=== PATIENT | male | born 1950 | race Caucasian/White ===

== ENCOUNTER 2018-09-13 09:09 | Observation (INO) ==
--- NOTE | 2018-09-13 09:28 | Emergency Department Note ---
Disposition Clinical Impression: Weakness, Proctocolitis, TACOS (acute kidney injury) Diarrhea Qualifiers: Diarrhea type: unspecified type Qualified Code(s): R19.7 - Diarrhea, unspecified Pancreatitis Qualifiers: Chronicity: acute Pancreatitis type: unspecified pancreatitis type Acute pancreatitis complication: unspecified Qualified Code(s): K85.90 - Acute pancreatitis without necrosis or infection, unspecified Ulcerative colitis Qualifiers: Ulcerative colitis location: other ulcerative colitis Digestive disease complication type: without complication Qualified Code(s): K51.80 - Other ulcerative colitis without complications Disposition: Admitted As Inpatient Condition: Undetermined Referrals: Oseas Painter DO [Primary Care Provider] - Forms: ED Satisfaction Letter Time of Disposition: 12:00 General Adult HPI - General Stated complaint: abnormal labs Time Seen by Provider: 09/13/18 09:15 Source: patient, family Mode of arrival: private vehicle Limitations: no limitations Nursing Notes Reviewed: Yes Vital Signs Reviewed: Yes - History of Present Illness HPI Narrative: Patient is a 68-year-old male with a past medical history including COPD, chronic pancreatitis, coronary artery disease and AR with stent placements, hypertension, hyperlipidemia, bladder cancer s/p surgery in 2017, presenting with a chief complaint of abnormal lab work. He states he was diagnosed with ulcerative colitis 2 years ago. In the last 2-3 months he has diarrhea, occasional bright red blood. He has 40 pound weight loss. Complains of generalized weakness. He has some nausea and decreased appetite. Denies abdominal pain, vomiting. Denies dysuria, hematuria. Patient saw KULWINDER Ware last week, started on budesinide. He had lab work done last week on 09/08. He was called stating to come to the ED for abnormal lab work. The patient denies any fevers or chills, chest pain, shortness of breath, worsening cough, one-sided extremity weakness or numbness. The patient does note he was treated with a 10 day course of flagyl for colitis. Pain Scale: 6 - Related Data Home Medications Medication Instructions Recorded Confirmed Isosorbide DInitrate [Isosorbide 30 mg PO DAILY 09/23/16 09/23/16 Dinitrate] Lisinopril/Hydrochlorothiazide 1 each PO DAILY 09/23/16 09/23/16 [Zestoretic 20-12.5 mg Tablet] Lovastatin 40 mg PO DAILY 09/23/16 09/23/16 Metoprolol [Lopressor] 50 mg PO BID 09/23/16 09/23/16 Ranitidine HCl [Zantac] 300 mg PO DAILY 09/23/16 09/23/16 Previous Rx's Medication Instructions Recorded HYDROcodone/Acet 5/325 mg [[place] 1 tab PO Q4H PRN #15 tab 09/23/16 5-325 mg] Allergies Allergy/AdvReac Type Severity Reaction Status Date / Time No Known Allergies Allergy Verified 09/23/16 09:16 All systems ED: reviewed and negative except as stated. Review of Systems: As Per HPI Constitutional: Reports: weakness, weight change. Denies: fever, chills Cardiovascular: Denies: chest pain, palpitations Respiratory: Denies: cough, dyspnea Gastrointestinal: Reports: nausea, diarrhea, hematochezia. Denies: abdominal pain, vomiting, hematemesis, melena Genitourinary: Denies: dysuria, hematuria Musculoskeletal: Denies: back pain Neurological: Denies: headache, weakness, numbness, paresthesias, confusion, abnormal gait Past Medical History - Past Medical History Attestation: Yes The following information was validated with the patient. Source: patient Medical history: Reports: cancer, COPD, coronary artery disease, hyperlipidemia, hypertension, myocardial infarction Surgical history: Reports: angioplasty/stent, cancer surgery, knee replacement, other Psychiatric history: Reports: no psych history - Social History Smoking Status: Former smoker Smokeless Tobacco Status: No Alcohol use: Reports: occasionally Drug use: Reports: none Physical Exam - General Limitations: no limitations General appearance: alert, in no apparent distress - Head Head exam: atraumatic, normocephalic, normal inspection - Eye Eye exam: Present: normal appearance, PERRL, EOMI - ENT ENT exam: normal exam, normal oropharynx, mucous membranes moist - Neck Neck exam: Present: normal inspection, full ROM, trachea midline - Chest Chest inspection: Present: normal inspection, symmetric chest wall rise - Respiratory Respiratory exam: Present: normal lung sounds bilaterally. Absent: respiratory distress, wheezes - Cardiovascular Cardiovascular exam: Present: regular rate, normal rhythm, normal heart sounds - Abdominal Exam Abdominal exam: Present: soft, Non-Tender. Absent: distention, guarding, rebound - Extremities Exam Extremities exam: Present: full ROM, normal capillary refill. Absent: pedal edema, calf tenderness - Neurological Exam Neurological exam: Present: alert, oriented X3 - Psychiatric Psychiatric exam: Present: normal affect, normal mood - Skin Skin exam: Present: warm, dry. Absent: diaphoresis, pallor Course Vital Signs Temperature 98.1 F 09/13/18 09:10 Pulse Rate 81 09/13/18 09:10 Respiratory Rate 14 09/13/18 09:10 Blood Pressure 137/63 09/13/18 09:10 O2 Sat by Pulse Oximetry 95 09/13/18 09:10 Temperature 98.1 F 09/13/18 09:24 Pulse Rate 83 09/13/18 11:44 Respiratory Rate 16 09/13/18 11:44 Blood Pressure 143/74 09/13/18 11:44 O2 Sat by Pulse Oximetry 97 09/13/18 11:44 Oxygen Delivery Oxygen Delivery Room Air Medical Decision Making - MDM Narrative Medical decision making narrative: Patient is presenting with diarrhea for many weeks. He was diagnosed with ulcerative colitis 2 years ago and follows up with GI. He saw Dr. Valdez last week and started on a new medication. He also had lab work done. He is called with abnormalities in presenting here. He also complains of generalized weakness and significant weight loss in the past several weeks. From prior lab work, patient does have a GI with creatinine 2.331 prior was normal. He also had a elevated white blood count of 19. We will obtain repeat lab work and check CBC, BMP, hepatic panel, lipase , urinalysis, we will also obtain C. difficile toxin as he has chronic diarrhea. Patient also states he completed a 10 day course of Flagyl recently for colitis. We will obtain CT abdomen and pelvis without contrast as he has a low GFR that it appears to be new. We will also obtain chest x-ray. EKG shows no ischemic changes. 10:45 Labs reviewed. White blood count is decreased from 19,000-13,000. His kidney function also appears to be improved from the past 5 days from 2.88 to1.5. Lipase is elevated. Patient may have acute on chronic pancreatitis. We will also await the CT imaging. He is receiving a liter of IV fluids. 11:20 Patient has proctocolitis and findings of ulcerative colitis on CT. Acute on chronic pancreatitis. Will call KULWINDER Ware, who is patient's GI doctor and on consult. 11:55 Discussed with Luis Ahn, GI who states to give Cipro and Flagyl. Consult as needed. Hospitalist paged for admission. 12:[address] Razo, hospitalist who accepts admission - Medical Records Medical records reviewed: Yes I reviewed the patient's medical records. - Lab Data Lab results reviewed: Yes I reviewed the patient's lab results. Result diagrams: 09/13/18 09:49 09/13/18 09:49 Lab Results 09/13/18 09/13/18 09/13/18 Range/Units 09:49 09:49 10:50 WBC 13.9 H (4.3-11.1) K/mcL RBC 3.80 L (4.19-5.50) M/mcL Hgb 10.1 L (12.9-16.9) g/dL Hct 32.6 L (37.5-50.1) % MCV 85.8 (83.0-100.0) fL MCH 26.6 L (28.0-33.3) pg MCHC 31.0 L (31.6-35.5) g/dL RDW 15.6 H (11.5-14.5) % Plt Count 363 (140-400) K/mcL MPV 10.0 (9.4-12.4) fL Immature Gran % 0.6 (0-4) % Seg Neutrophils % 76.2 % Lymphocytes % 12.1 % Monocytes % 9.3 % Eosinophils % 1.4 % Basophils % 0.4 % Neutrophils # 10.6 H (1.6-8.9) K/mcL Lymphocytes # 1.7 (0.6-4.6) K/mcL Monocytes # 1.3 (0.0-1.3) K/mcL Eosinophils # 0.2 (0.0-0.6) K/mcL Basophils # 0.1 (0.0-0.2) K/mcL Sodium 140 (136-145) mEq/L Potassium 3.4 L (3.5-5.1) mEq/L Chloride 107 (98-107) mEq/L Carbon Dioxide 19 L (23-29) mEq/L BUN 30 H (8-23) mg/dL Creatinine 1.52 H (0.70-1.30) mg/dL Est GFR ( Amer) 55 L (> 60) Est GFR (Non-Af Amer) 46 L (> 60) BUN/Creatinine Ratio 20 (6-26) Glucose 109 H (70-105) mg/dL Calculated Osmolality 297 (280-300) Calcium 8.8 (8.6-10.3) mg/dL Total Bilirubin 0.3 (0.3-1.0) mg/dL Direct Bilirubin 0.1 (0.0-0.2) mg/dL Indirect Bilirubin 0.2 (0.0-1.2) mg/dL AST 22 (13-39) Units/L ALT 15 (7-52) Units/L Alkaline Phosphatase 44 (34-104) Units/L Serum Total Protein 6.9 (6.4-8.9) g/dL Albumin 3.5 (3.5-5.7) g/dL Globulin 3.4 (2.4-3.5) g/dL Albumin/Globulin Ratio 1.0 L (1.1-2.2) Lipase 236 H (11-82) Units/L Urine Color Yellow (Yellow) Urine Clarity Clear (Clear) Urine pH 6.0 (5.0-8.0) pH Units Ur Specific [place] 1.016 (1.010-1.025) Urine Protein 30 H (Neg-Trace) mg/dL Urine Glucose (UA) Normal (Normal) mg/dL Urine Ketones 15 H (Negative) mg/dL Urine Blood Negative (Negative) Urine Nitrite Negative (Negative) Urine Bilirubin Small H (Negative) Urine Urobilinogen Normal (Normal) mg/dL Ur Leukocyte Esterase Negative (Negative) Urine Microscopic RBC 0-3 (0-3) per hpf Urine Microscopic WBC 0-3 (0-3) per hpf Ur Squamous Epith Cells Many H (None-Few) per lpf Urine Bacteria None Seen (None-Few) per hpf Hyaline Casts None Seen (None-Few) per lpf Ur Culture Indicated? NO (NO) - Radiology Data Radiology results reviewed: Yes I reviewed the patient's radiology results. Abdomen/Pelvis CT 09/13/18 10:06 IMPRESSION: 1. Loss of haustral folds within the descending colon and sigmoid colon compatible with history of ulcerative colitis. There is colonic wall thickening in this region which may signify superimposed proctocolitis. 2. Normal appendix. No bowel obstruction. 3. Punctate calcifications throughout the pancreas compatible with sequela of chronic pancreatitis. D/ / 09/13/2018 10:55:54 Kitty Bauer MD / anuja Interpreting Provider: Kitty Bauer MD Chest X-Ray 09/13/18 10:14 IMPRESSION: 1. No acute radiographic abnormality in the chest. D/ / Samir Licona MD / Samir Licona MD Interpreting Provider: Samir Licona MD - EKG Data EKG #1 EKG attestation: Yes I reviewed and interpreted this EKG. EKG results narrative: EKG obtained at 1021 shows sinus rhythm with heart rate 71, HI interval 170, QRS duration 92, QTC 426, No ST elevation or depression. T wave inversion in lead 3. No changes compared to EKG from 09/19/2016.
[2018-09-13 10:03] LABS: Basophils # 0.1 K/mcL (0.0-0.2); Basophils % 0.4 %; Eosinophils # 0.2 K/mcL (0.0-0.6); Eosinophils % 1.4 %; Hematocrit 32.6 % (37.5-50.1); Hemoglobin 10.1 g/dL (12.9-16.9); Immature Granulocytes % 0.6 % (0-4); Lymphocytes # 1.7 K/mcL (0.6-4.6); Lymphocytes % 12.1 %; Mean Corpuscular Hemoglobin 26.6 pg (28.0-33.3); Mean Corpuscular Volume 85.8 fL (83.0-100.0); Monocytes # 1.3 K/mcL (0.0-1.3); Monocytes % 9.3 %; Neutrophils # 10.6 K/mcL (1.6-8.9); Platelet Count 363 K/mcL (140-400); Red Cell Distribution Width 15.6 % (11.5-14.5); Segmented Neutrophils % 76.2 %; White Blood Count 13.9 K/mcL (4.3-11.1)
[2018-09-13] MEDS ORDERED: 0.9 % Sodium Chloride 1,000 ML IVC ONE (10:07)
[2018-09-13 10:24] LABS: Calcium 8.8 mg/dL (8.6-10.3); Potassium 3.4 mEq/L (3.5-5.1)
--- NOTE | 2018-09-13 10:30 | Emergency Department Note ---
Disposition Clinical Impression: Weakness, Proctocolitis, TACOS (acute kidney injury) Diarrhea Qualifiers: Diarrhea type: unspecified type Qualified Code(s): R19.7 - Diarrhea, unspecified Pancreatitis Qualifiers: Chronicity: acute Pancreatitis type: unspecified pancreatitis type Acute pancreatitis complication: unspecified Qualified Code(s): K85.90 - Acute pancreatitis without necrosis or infection, unspecified Ulcerative colitis Qualifiers: Ulcerative colitis location: other ulcerative colitis Digestive disease complication type: without complication Qualified Code(s): K51.80 - Other ulcerative colitis without complications Disposition: Admitted As Inpatient Condition: Undetermined Time of Disposition: 16:24 General Adult HPI - General Chief complaint: ED Recheck/Abnormal Lab/Rx Stated complaint: abnormal labs Time Seen by Provider: 09/13/18 09:15 Source: patient, family Mode of arrival: private vehicle Limitations: no limitations Nursing Notes Reviewed: Yes Vital Signs Reviewed: Yes - History of Present Illness Pain Scale: 6 - Related Data Home Medications Medication Instructions Recorded Confirmed Isosorbide DInitrate [Isosorbide 30 mg PO DAILY 09/23/16 09/13/18 Dinitrate] Lovastatin 40 mg PO DAILY 09/23/16 09/13/18 Metoprolol [Lopressor] 50 mg PO BID 09/23/16 09/13/18 Budesonide [Entocort EC] 9 mg PO DAILY 09/13/18 09/13/18 Finasteride [Proscar] 5 mg PO DAILY 09/13/18 09/13/18 Lisinopril 30 mg PO DAILY 09/13/18 09/13/18 Ranitidine HCl [Acid Oxygen Therapist] 150 mg PO BID 09/13/18 09/13/18 Sulfasalazine [Azulfidine] 2,000 mg PO BID 09/13/18 09/13/18 Allergies Allergy/AdvReac Type Severity Reaction Status Date / Time No Known Allergies Allergy Verified 09/23/16 09:16 Constitutional: Reports: weakness, weight change. Denies: fever, chills Cardiovascular: Denies: chest pain, palpitations Respiratory: Denies: cough, dyspnea Gastrointestinal: Reports: nausea, diarrhea, hematochezia. Denies: abdominal pain, vomiting, hematemesis, melena Genitourinary: Denies: dysuria, hematuria Musculoskeletal: Denies: back pain Neurological: Denies: headache, weakness, numbness, paresthesias, confusion, a bnormal gait Past Medical History - Past Medical History Medical history: Reports: cancer, COPD, coronary artery disease, hyperlipidemia, hypertension, myocardial infarction Surgical history: Reports: angioplasty/stent, cancer surgery, knee replacement, other Psychiatric history: Reports: no psych history - Social History Smoking Status: Former smoker Smokeless Tobacco Status: No Alcohol use: Reports: occasionally Drug use: Reports: none Physical Exam - General Limitations: no limitations General appearance: alert, in no apparent distress Course Vital Signs Temperature 98.1 F 09/13/18 09:10 Pulse Rate 81 09/13/18 09:10 Respiratory Rate 14 09/13/18 09:10 Blood Pressure 137/63 09/13/18 09:10 O2 Sat by Pulse Oximetry 95 09/13/18 09:10 Temperature 98.1 F 09/13/18 09:24 Pulse Rate 88 09/13/18 14:12 Respiratory Rate 18 09/13/18 15:21 Blood Pressure 146/70 09/13/18 15:21 O2 Sat by Pulse Oximetry 98 09/13/18 14:12 Oxygen Delivery Oxygen Delivery Room Air Medical Decision Making - [facility] Narrative Medical decision making narrative: Abdomen/Pelvis CT 09/13/18 10:06 IMPRESSION: 1. Loss of haustral folds within the descending colon and sigmoid colon compatible with history of ulcerative colitis. There is colonic wall thickening in this region which may signify superimposed proctocolitis. 2. Normal appendix. No bowel obstruction. 3. Punctate calcifications throughout the pancreas compatible with sequela of chronic pancreatitis. D/ / 09/13/2018 10:55:54 Kitty Bauer MD / anuja Interpreting Provider: Kitty Bauer MD Chest X-Ray 09/13/18 10:14 IMPRESSION: 1. No acute radiographic abnormality in the chest. D/ / Samir Licona MD / Samir Licona MD Interpreting Provider: Samir Licona MD 1200 hrs.: Spoke with GI start on antibiotics and admission with hospitalist. - Lab Data Result diagrams: 09/13/18 09:49 07/15/19 09:49 Lab Results 09/13/18 09/13/18 09/13/18 Range/Units 09:49 09:49 10:50 WBC 13.9 H (4.3-11.1) K/mcL RBC 3.80 L (4.19-5.50) M/mcL Hgb 10.1 L (12.9-16.9) g/dL Hct 32.6 L (37.5-50.1) % MCV 85.8 (83.0-100.0) fL MCH 26.6 L (28.0-33.3) pg MCHC 31.0 L (31.6-35.5) g/dL RDW 15.6 H (11.5-14.5) % Plt Count 363 (140-400) K/mcL MPV 10.0 (9.4-12.4) fL Immature Gran % 0.6 (0-4) % Seg Neutrophils % 76.2 % Lymphocytes % 12.1 % Monocytes % 9.3 % Eosinophils % 1.4 % Basophils % 0.4 % Neutrophils # 10.6 H (1.6-8.9) K/mcL Lymphocytes # 1.7 (0.6-4.6) K/mcL Monocytes # 1.3 (0.0-1.3) K/mcL Eosinophils # 0.2 (0.0-0.6) K/mcL Basophils # 0.1 (0.0-0.2) K/mcL Sodium 140 (136-145) mEq/L Potassium 3.4 L (3.5-5.1) mEq/L Chloride 107 (98-107) mEq/L Carbon Dioxide 19 L (23-29) mEq/L BUN 30 H (8-23) mg/dL Creatinine 1.52 H (0.70-1.30) mg/dL Est GFR ( Amer) 55 L (> 60) Est GFR (Non-Af Amer) 46 L (> 60) BUN/Creatinine Ratio 20 (6-26) Glucose 109 H (70-105) mg/dL Calculated Osmolality 297 (280-300) Calcium 8.8 (8.6-10.3) mg/dL Total Bilirubin 0.3 (0.3-1.0) mg/dL Direct Bilirubin 0.1 (0.0-0.2) mg/dL Indirect Bilirubin 0.2 (0.0-1.2) mg/dL AST 22 (13-39) Units/L ALT 15 (7-52) Units/L Alkaline Phosphatase 44 (34-104) Units/L Serum Total Protein 6.9 (6.4-8.9) g/dL Albumin 3.5 (3.5-5.7) g/dL Globulin 3.4 (2.4-3.5) g/dL Albumin/Globulin Ratio 1.0 L (1.1-2.2) Lipase 236 H (11-82) Units/L Urine Color Yellow (Yellow) Urine Clarity Clear (Clear) Urine pH 6.0 (5.0-8.0) pH Units Ur Specific [place] 1.016 (1.010-1.025) Urine Protein 30 H (Neg-Trace) mg/dL Urine Glucose (UA) Normal (Normal) mg/dL Urine Ketones 15 H (Negative) mg/dL Urine Blood Negative (Negative) Urine Nitrite Negative (Negative) Urine Bilirubin Small H (Negative) Urine Urobilinogen Normal (Normal) mg/dL Ur Leukocyte Esterase Negative (Negative) Urine Microscopic RBC 0-3 (0-3) per hpf Urine Microscopic WBC 0-3 (0-3) per hpf Ur Squamous Epith Cells Many H (None-Few) per lpf Urine Bacteria None Seen (None-Few) per hpf Hyaline Casts None Seen (None-Few) per lpf Ur Culture Indicated? NO (NO) Attestation Statement - Attestation Attestation: This documentation is done with the assistance of Dragon dictation. Despite efforts made to ensure accuracy, there may be inaccuracies in [employer] food [employer] cooking or spelling and typographical errors. I examined this patient and my medical decision-making was reviewed with the Resident Physician. I agree with the documented findings, disposition and treatment plan as described except to the extent set forth below. Patient was seen and evaluated by Dr. Hurley and myself, I agree with his evaluation and management plan, I supervised the care of the patient throughout their stay. Patient has had diarrhea and that has been going on for a couple months. He said he had this a long time ago had colitis, was placed on Cipro and Flagyl he said this time is just on Flagyl. He said a more than 20 pound weight loss is felt weak. He is appears somewhat pale here. Denies abdominal pain this time. He denies any chest pain or fevers. We will go ahead and do a workup on him and reassess. Most likely he will need admission. He is in agreement with plan. I reviewed the residents documentation and agree with the residents assessment and plan of care. I have personally had face to face time with the patient. (Brief History, Brief Exam, and MDM) I personally supervised and was present for the turner/critical portions of the following procedures completed by the resident: EKG was reviewed and interpreted by Dr. CARDOSO under my supervision, agree with his interpretation.
[2018-09-13 10:33] LABS: Albumin 3.5 g/dL (3.5-5.7); Bilirubin,Direct 0.1 mg/dL (0.0-0.2); Bilirubin,Indirect 0.2 mg/dL (0.0-1.2); Bilirubin,Total 0.3 mg/dL (0.3-1.0); Globulin 3.4 g/dL (2.4-3.5); Total Protein 6.9 g/dL (6.4-8.9)
[2018-09-13 11:41] LABS: Bilirubin,Urine Small (Negative); Blood,Urine Negative (Negative); Clarity,Urine Clear (Clear); Color,Urine Yellow (Yellow); Glucose,Urine (UA) Normal (Normal); Ketones,Urine 15 mg/dL (Negative); Leukocyte Esterase,Urine Negative (Negative); Nitrite,Urine Negative (Negative); Protein,Urine 30 mg/dL (Neg-Trace); Specific Gravity,Urine 1.016 (1.010-1.025); Urobilinogen,Urine Normal (Normal)
[2018-09-13 11:45] LABS: Bacteria,Urine None Seen per hpf (None-Few); Hyaline Casts,Urine None Seen per lpf (None-Few); RBC,Urine 0-3 per hpf (0-3); Squamous Epithelial Cell,Urine Many per lpf (None-Few); WBC,Urine 0-3 per hpf (0-3)
[2018-09-13] MEDS ORDERED: MetroNIDAZOLE 500 MG/100 ML 500 MG/100 ML BAG IVPB ONE (11:52)
--- NOTE | 2018-09-13 12:40 | Internal Med History&Physical ---
Date of Encounter: 09/13/18 Time of Encounter: 12:11 Internal Medicine - H&P: HPI Chief complaint: Diarrhea Admitted From: Home Plans for Post Hospital Care: Home History of present illness: Mr. Obrien is a 68 year old male with past medical history of hypertension, hyperlipidemia, coronary artery disease with last stent in 2002, who was diagnosed with ulcerative colitis about 2 years ago came in with complain of di arrhea ongoing for last 4 months and recent abnormal labs. Patient was seen by Dr. Justin outpatient recently and had lab work done and was started on budesonide. Lab work reported to be significantly abnormal with acute kidney injury and elevated white count. She was asked to come to ER on Thursday he mentioned he has been having diarrhea for almost 4 months. He has been on medication for ulcerative colitis for past 4 months which was not working hence was switched to budesonide recently which she took for about 4 days. Whenever he eats leads to diarrhea which has led to significant weight loss of about 40 pounds in the last 3-1/2 months. He denies any fevers chills or abdominal pain. He has some signs of tenesmus. He had last colonoscopy last year. He was on antibiotics many times before and occasionally for many weeks. He recently finished about 10 day course of Flagyl. He has on and off noticed smaller moderate of blood in stool. His bowel movements are loose. He tries to keep himself hydrated as much as possible when he is diabetic. He denies any chest pain difficulty breathing leg swelling lightheadedness palpitation. Patient was related to in ER were white count has improved and renal function is improved however still abnormal. Admission was requested for further management. Past Med Surg Social Fam HX - Past Medical History Medical history: cancer, COPD, coronary artery disease, hyperlipidemia, hypertension, myocardial infarction Additional medical history: Bladder cancer in remission. ulcerative colitis Psychiatric history: no psych history - Past Surgical History Surgical History: angioplasty/stent, cancer surgery, knee replacement, other Additional surgical history: Right knee replacement, bladder tumor removal - Social History Smoking Status: Former smoker Smokeless Tobacco Status: No Alcohol use: occasionally Drug use: none - Additional Family History Additional family history: reviewed and non-contributory Internal Medicine - H&P: Meds HYDROcodone/Acet 5/325 mg [[place] 5-325 mg] 1 tab PO Q4H PRN #15 tab 09/23/16 [Rx] Isosorbide DInitrate [Isosorbide Dinitrate] 30 mg PO DAILY 09/23/16 [History] Lisinopril/Hydrochlorothiazide [Zestoretic 20-12.5 mg Tablet] 1 each PO DAILY 09/23/16 [History] Lovastatin 40 mg PO DAILY 09/23/16 [History] Metoprolol [Lopressor] 50 mg PO BID 09/23/16 [History] Ranitidine HCl [Zantac] 300 mg PO DAILY 09/23/16 [History] Allergy/AdvReac Type Severity Reaction Status Date / Time No Known Allergies Allergy Verified 09/23/16 09:16 All Systems PM: A 10-system review of systems was performed and is negative for pertinent findings except as documented above in the HPI. - Constitutional Vitals: Temp Pulse Resp BP Pulse Ox 98.1 F 83 16 143/74 97 09/13/18 09:24 09/13/18 11:44 09/13/18 11:44 09/13/18 11:44 09/13/18 11:44 Exam: Constitutional: Vitals as noted. Conversant. No Apparent Distress. Obese Eyes : Sclera white, conjunctiva clear, no lid lag, PEARLA. ENT : Grossly normal hearing. Oropharyngeal exam unremarkable. Respiratory : Clear to auscultation bilaterally. No accessory muscle use, rales, rhonchi or wheezes Cardiovascular : RRR, +S1, +S2. no murmur, gallop, rubs. No chest wall tenderness GI/Abdominal : Soft, non tender, Non-distended, normal bowel sounds, no peritoneal signs. no orgenomegaly or mass appreciated. no hernia. Musculoskeletal: no deformity noted. no edema or cyanosis. warm extremities, pulses palpable and symmetrical in UE/LE. no calf tenderness. Neurological: AO X3, CN II-XII grossly intact, grossly normal motor and sensory exam. Skin: No skin rash, lesions or ulcers noted. Pych: Good insight and judgement. Intact memory. AOx3. Internal Med - H&P Results - Labs CBC & Chem 7: 09/13/18 09:49 09/13/18 09:49 Labs: Short CBC 09/13/18 Range/Units 09:49 WBC 13.9 H (4.3-11.1) K/mcL Hgb 10.1 L (12.9-16.9) g/dL Hct 32.6 L (37.5-50.1) % Plt Count 363 (140-400) K/mcL Neutrophils # 10.6 H (1.6-8.9) K/mcL BMP 09/13/18 09:49 Sodium 140 Potassium 3.4 L Chloride 107 Carbon Dioxide 19 L BUN 30 H Creatinine 1.52 H Glucose 109 H Calcium 8.8 Liver Function 09/13/18 Range/Units 09:49 Total Bilirubin 0.3 (0.3-1.0) mg/dL Direct Bilirubin 0.1 (0.0-0.2) mg/dL AST 22 (13-39) Units/L ALT 15 (7-52) Units/L Alkaline Phosphatase 44 (34-104) Units/L Albumin 3.5 (3.5-5.7) g/dL Urine 09/13/18 Range/Units 10:50 Urine Color Yellow (Yellow) Urine Clarity Clear (Clear) Urine pH 6.0 (5.0-8.0) pH Units Ur Specific [place] 1.016 (1.010-1.025) Urine Protein 30 H (Neg-Trace) mg/dL Urine Glucose (UA) Normal (Normal) mg/dL - EKG Data -: EKG Interpreted by Myself EKG shows normal: sinus rhythm - Impressions ITS Impressions Abdomen/Pelvis CT 09/13/18 10:06 IMPRESSION: 1. Loss of haustral folds within the descending colon and sigmoid colon compatible with history of ulcerative colitis. There is colonic wall thickening in this region which may signify superimposed proctocolitis. 2. Normal appendix. No bowel obstruction. 3. Punctate calcifications throughout the pancreas compatible with sequela of chronic pancreatitis. D/ / 09/13/2018 10:55:54 Kitty Bauer MD / anuja Interpreting Provider: Kitty Bauer MD Chest X-Ray 09/13/18 10:14 IMPRESSION: 1. No acute radiographic abnormality in the chest. D/ / Samir Licona MD / Samir Licona MD Interpreting Provider: Samir Licona MD - Assessment and Plan (1) TACOS (acute kidney injury) Current Visit: Yes Status: Acute Assessment and plan: Likely prerenal in nature We will keep patient on IV fluids with LR at 100 mL an hour. Obtained urine creatinine and sodium. Hold home lisionpril No concerns for obstruction. (2) Diarrhea Current Visit: Yes Status: Acute Assessment and plan: Likely due to ulcerative colitis Patient started on Cipro and Flagyl empirically per GI recommendation. Patient on budesonide however unclear that he was getting benefit from it given ongoing diarrhea. We will consult gastroenterology. Patient may benefit from IV steroids. Patient without fevers or abdominal pain. CDiff testing ordered. Less concern of Cdiff. Qualifiers: Diarrhea type: unspecified type Qualified Code(s): R19.7 - Diarrhea, unspecified (3) Ulcerative colitis Current Visit: Yes Status: Acute Assessment and plan: as above Heparin sc for DVT ppx Home medications being confirmed. Qualifiers: Ulcerative colitis location: other ulcerative colitis Digestive disease complication type: without complication Qualified Code(s): K51.80 - Other ulcerative colitis without complications - Time Spent With Patient Total time spent is greater than 50% in coordination of care (as documented) at patient's floor/unit and/or counseling patient:
[2018-09-13] MEDS: *HR* Heparin 5,000 UNIT/ML VIAL SQ SCH ×2 (15:50→20:31)
[2018-09-13] MEDS: Ringers Solution, Lactated 1,000 ML IVC SCH (16:32)
[2018-09-13] MEDS: MetroNIDAZOLE 500 MG/100 ML 500 MG/100 ML BAG IVPB SCH (17:00)
[2018-09-13] MEDS: sulfaSALAzine 500 MG TABLET PO SCH (20:30)
[2018-09-13] MEDS: Famotidine 20 MG TABLET PO SCH (20:31)
[2018-09-14] MEDS: MetroNIDAZOLE 500 MG/100 ML 500 MG/100 ML BAG IVPB SCH ×4 (00:06→16:49)
[2018-09-14] MEDS: Ringers Solution, Lactated 1,000 ML IVC SCH ×2 (02:58→16:47)
[2018-09-14 05:15] LABS: Basophils % 0.2 %; Eosinophils # 0.2 K/mcL (0.0-0.6); Eosinophils % 1.4 %; Hematocrit 29.9 % (37.5-50.1); Hemoglobin 9.4 g/dL (12.9-16.9); Immature Granulocytes % 0.3 % (0-4); Lymphocytes # 1.7 K/mcL (0.6-4.6); Lymphocytes % 13.1 %; Mean Corpuscular HGB Conc 31.4 g/dL (31.6-35.5); Mean Corpuscular Hemoglobin 26.5 pg (28.0-33.3); Mean Corpuscular Volume 84.2 fL (83.0-100.0); Monocytes # 1.7 K/mcL (0.0-1.3); Monocytes % 13.2 %; Neutrophils # 9.4 K/mcL (1.6-8.9); Platelet Count 349 K/mcL (140-400); Red Blood Count 3.55 M/mcL (4.19-5.50); Red Cell Distribution Width 15.3 % (11.5-14.5); Segmented Neutrophils % 71.8 %; White Blood Count 13.1 K/mcL (4.3-11.1)
[2018-09-14 05:31] LABS: BUN/Creatinine Ratio 14 (6-26); Blood Urea Nitrogen 19 mg/dL (8-23); Calcium 8.4 mg/dL (8.6-10.3); Carbon Dioxide 20 mEq/L (23-29); Chloride 111 mEq/L (98-107); Glucose 113 mg/dL (70-105); Magnesium 1.8 mg/dL (1.6-2.6); Osmolality,Calculated 299 (280-300); Potassium 3.2 mEq/L (3.5-5.1); Sodium 143 mEq/L (136-145); eGFR For African Americans > 60 (> 60); eGFR For Non-African Americans 50 (> 60)
[2018-09-14] MEDS: *HR* Heparin 5,000 UNIT/ML VIAL SQ SCH ×3 (05:59→20:56)
[2018-09-14] MEDS ORDERED: Potassium Chloride Elixir 20 MEQ/15 ML UDC PO ONE (07:21)
[2018-09-14] MEDS: Famotidine 20 MG TABLET PO SCH (07:23)
[2018-09-14] MEDS: sulfaSALAzine 500 MG TABLET PO SCH ×2 (07:24→20:56)
[2018-09-14] MEDS: Finasteride 5 MG TABLET PO SCH (07:24)
[2018-09-14] MEDS: Isosorbide MONOnitrate (24 HR) 30 MG TAB.ER.24H PO SCH (07:24)
[2018-09-14 08:10] LABS: Sodium, Urine 14.8 mEq/L
[2018-09-14] MEDS ORDERED: BUDESONIDE 9 MG PO SCH (09:00)
[2018-09-14] MEDS ORDERED: Famotidine 20 MG TABLET PO SCH (09:00)
--- NOTE | 2018-09-14 12:22 | Gastroenterology Consult Note ---
Date of Encounter: 09/14/18 Time of Encounter: 10:40 - Assessment and plan (1) Proctocolitis Current Visit: Yes Status: Acute Assessment and plan: CT A/P shows loss of haustral folds in descending and sigmoid colon, colonic wall thickening with possibility of superimposed proctocolitis. Continue Cipro and Flagyl. Check GI panel. Check CRP and ESR. (2) Diarrhea Current Visit: Yes Status: Acute Assessment and plan: Likely secondary to UC and proctocolitis. Qualifiers: Diarrhea type: unspecified type Qualified Code(s): R19.7 - Diarrhea, unspecified (3) Ulcerative colitis Current Visit: Yes Status: Acute Assessment and plan: Continue budesonide. Check CRP and ESR. Qualifiers: Ulcerative colitis location: other ulcerative colitis Digestive disease complication type: without complication Qualified Code(s): K51.80 - Other ulcerative colitis without complications - Time Spent With Patient Total time spent is greater than 50% in coordination of care (as documented) at patient's floor/unit and/or counseling patient: GI History of Present Illness - Data of Consult Patient: known to practice within the last 3 years Consult date: 09/14/18 Requesting Physician: Sandrita Beaver - Consult Narrative Reason for consult: Diarrhea, UC History of present illness: Mr. Obrien is a 68 year old male with PMHx of COPD, CAD, HLD, HTN, diagnosed with UC 2 years ago presented with complaints of diarrhea for the past 4 months. Patient was changed from Sulfasalazine to Budesonide on 09/[address] Justin. Patient reports eating makes his diarrhea worse. CT A/P shows loss of haustral folds in descending and sigmoid colon, colonic wall thickening with possibility of superimposed proctocolitis. Patient was started on Cipro and Flagyl. He states he was able to tolerate breakfast this morning without diarrhea. Procedures: Colonoscopy 08/21/2017 Dr. Gutiérrez: Diffuse moderate inflammation in entire colon, biopsies showed active colitis. NSAIDs: None Anticoagulation: None Past Med Surg Social Fam HX - Past Medical History Medical history: cancer, COPD, coronary artery disease, hyperlipidemia, hypertension, myocardial infarction Additional medical history: Bladder cancer in remission. ulcerative colitis Psychiatric history: no psych history - Past Surgical History Surgical History: angioplasty/stent, cancer surgery, knee replacement, other Additional surgical history: Right knee replacement, bladder tumor removal, angioplasty - Social History Smoking Status: Former smoker Smokeless Tobacco Status: No Alcohol use: occasionally Drug use: none - Gastrointestinal Gastrointestinal: Present: as per HPI - Constitutional Constitutional: as per HPI - EENT Eyes: as per HPI Ears: Present: as per HPI Nose, mouth and throat: Present: as per HPI - Cardiovascular Cardiovascular ROS: Present: as per HPI - Respiratory Respiratory IM: Present: as per HPI - Genitourinary Genitourinary: Absent: change in color, Urinary frequency - Neurological ROS Neurological GI: Present: as per HPI - Hematologic/Lymphatic Hematologic/Lymphatic pediatric: Present: as per HPI - Musculoskeletal Musculoskeletal ROS GI: Present: as per HPI - Integumentary Integumentary GI: Present: as per HPI - Psychiatric ROS Psychiatric GI: Present: as per HPI - Endocrine Endocrine IM: Present: as per HPI - Constitutional Vitals: Temp Pulse Resp BP Pulse Ox 98.6 F 78 18 112/60 96 09/14/18 11:54 09/14/18 11:54 09/14/18 11:54 09/14/18 11:54 09/14/18 11:54 General appearance: Present: cooperative, A&O X 3, no acute distress, answers questions appropriately - Head Head exam: Present: atraumatic, normocephalic - Eye Eye exam: Present: normal appearance, sclera anicteric - ENT ENT exam: Present: mucous membranes moist - Neck Neck exam general surgery: Present: normal inspection, trachea midline - Respiratory Respiratory exam: Present: decreased breath sounds, CTAB. Absent: rales, rhonchi - Cardiovascular Cardiovascular exam: Present: RRR, +S1, +S2 - GI/Abdominal GI/Abdominal exam: Present: soft, no peritoneal signs. Absent: distended, firm, guarding, tenderness - Rectal Rectal exam: Present: deferred - Extremities Exam Extremities exam: Present: warm - Neurological Exam Neurological exam: Present: no focal deficits - Psychiatric Psychiatric exam: Present: normal affect, normal mood - Skin Skin exam: Present: dry, intact, normal color, warm Results - Labs CBC & Chem 7: 09/14/18 04:39 09/14/18 04:39 Labs: Last Result 09/14/18 04:39 Calcium 8.4 L Entire Visit 09/14/18 04:39 Hgb 9.4 L Hct 29.9 L - Impressions Impressions Abdomen/Pelvis CT 09/13/18 10:06 IMPRESSION: 1. Loss of haustral folds within the descending colon and sigmoid colon compatible with history of ulcerative colitis. There is colonic wall thickening in this region which may signify superimposed acute proctocolitis. 2. Normal appendix. No bowel obstruction. 3. Punctate calcifications throughout the pancreas compatible with sequela of chronic pancreatitis. D/ / 09/13/2018 10:55:54 Kitty Bauer MD / anuja Interpreting Provider: Kitty Bauer MD Consult Discharge Plan - Plan Referrals: Oseas Painter DO [Primary Care Provider] -
[2018-09-14 12:39] LABS: Adenovirus F 40/41 PCR Not detected (Not detect); Astrovirus PCR Not detected (Not detect); C.difficile Toxin A/B Gene PCR Not detected (Not detect); Campylobacter by PCR Not detected (Not detect); Cryptosporidium by PCR Not detected (Not detect); Cyclospora cayetanensis PCR Not detected (Not detect); E. coli O157 by PCR Not detected (Not detect); Entamoeba histolytica PCR Not detected (Not detect); Enteroaggregative E.coli(EAEC) Not detected (Not detect); Enteropathogenic E.coli(EPEC) Not detected (Not detect); Enterotoxigenic E.coli (ETEC) Not detected (Not detect); Giardia lamblia PCR Not detected (Not detect); Norovirus GI/GII PCR Not detected (Not detect); Plesiomonas shigelloides PCR Not detected (Not detect); Rotavirus A PCR Not detected (Not detect); Salmonella PCR Not detected (Not detect); Sapovirus PCR Not detected (Not detect); Shig/EnteroinvasiveE coli EIEC Not detected (Not detect); Shigalike tox-prod E coli STEC Not detected (Not detect); Vibrio PCR Not detected (Not detect); Vibrio cholerae PCR Not detected (Not detect); Yersinia enterocolitica PCR Not detected (Not detect)
[2018-09-14 12:41] LABS: C-Reactive Protein 22 mg/L (Less than 10)
--- NOTE | 2018-09-14 15:09 | Internal Med Progress Note ---
Hospitalist Progress Note - Encounter Date of Encounter: 09/14/18 Time of Encounter: 10:00 - Subjective Interval History: No major events overnight. Patient was seen this a.m. He denied fever, chills or night sweats. He has no nausea, vomiting or abdominal pain. Patient denied chest pain, shortness of breath or palpitation. He described a dozen of bowel movements this morning however he is able to tolerate his diet. - Exam Vitals: Temp Pulse Resp BP Pulse Ox 98.6 F 78 18 112/60 96 09/14/18 11:54 09/14/18 11:54 09/14/18 11:54 09/14/18 11:54 09/14/18 11:54 Exam: General: Patient is alert, oriented 3. Head: Atraumatic, normal inspection, normocephalic. Eye: EOMI, PERRLA, no scleral icterus noted. ENT: Mucous membranes moist. No odontogenic infection noted. Neck: Normal inspection, no meningismus. Respiratory: No respiratory distress, rhonchi, or wheezes noted. Cardiovascular: Regular rate and regular rhythm, S1 and S2 audible. No murmurs, rubs, or gallops. GI: Soft, nondistended, normal bowel sounds. Extremities:No joint swelling, pedal edema, or tenderness noted. Neurological: Alert, oriented 3, no focal deficits. Psychiatric: normal affect, normal mood. Skin: Dry, intact, warm. Normal color. No rashes. - Assessment and Plan (1) Proctocolitis Current Visit: Yes Status: Acute (2) Ulcerative colitis Current Visit: Yes Status: Acute (3) Diarrhea Current Visit: Yes Status: Acute (4) TACOS (acute kidney injury) Current Visit: Yes Status: Acute (5) Hypokalemia Current Visit: Yes Status: Acute - Summary of Assessment and Plan Summary of Assessment and Plan: 68-year-old male with history of ulcerative colitis diagnosed 1 year ago, chronic pancreatitis, hypertension who came into the hospital with 3 month history of diarrhea, hematochezia and weight loss. CT scan of the abdomen revealed chronic changes consistent with ulcerative colitis and proctocolitis. his Symptoms are managed as following: Proctocolitis: - Patient is hemodynamically stable, has leukocytosis. - GI panel is negative, GI is consulted. - On Cipro and Flagyl day 2, on diabetic diet. Tolerated well as per the patient. - Discussed with GI, continue budesonide as the patient was just started on it 4 days ago, no plans for IV steroids at this moment. Ulcerative colitis: - Continue budesonide and sulfasalazine. - ESR 56, CRP 22. Anemia: - Check ferritin, B12 and folic acid levels. hypokalemia: - Likely from diarrhea. Replacement given. - Check BMP tomorrow TACOS: improving - Cr is 1.4 today, pre-renal from dehydration. - We will continue with IV fluids. Check BMP tomorrow - Tip and physical. On hold. CAD status post PCI: - Continue Lipitor, beta beto. Not on aspirin HTN: - Keep lisinopril on hold. Continue BB DVT prophylaxis: Heparin sc - Time Spent with Patient Total time spent is greater than 50% in coordination of care (as documented) at patient's floor/unit and/or counseling patient: Plan of Care Discussed with: patient Internal Medicine: Result - Labs CBC & Chem 7: 09/14/18 04:39 09/14/18 04:39 Labs: Short CBC 09/14/18 Range/Units 04:39 WBC 13.1 H (4.3-11.1) K/mcL Hgb 9.4 L (12.9-16.9) g/dL Hct 29.9 L (37.5-50.1) % Plt Count 349 (140-400) K/mcL Neutrophils # 9.4 H (1.6-8.9) K/mcL BMP 09/14/18 04:39 Sodium 143 Potassium 3.2 L Chloride 111 H Carbon Dioxide 20 L BUN 19 Creatinine 1.40 H Glucose 113 H Calcium 8.4 L - Impressions Impressions Abdomen/Pelvis CT 09/13/18 10:06 IMPRESSION: 1. Loss of haustral folds within the descending colon and sigmoid colon compatible with history of ulcerative colitis. There is colonic wall thickening in this region which may signify superimposed acute proctocolitis. 2. Normal appendix. No bowel obstruction. 3. Punctate calcifications throughout the pancreas compatible with sequela of chronic pancreatitis. D/ / 09/13/2018 10:55:54 Kitty Bauer MD / anuja Interpreting Provider: Kitty Bauer MD Consult Discharge Plan - Plan Referrals: Oseas Painter DO [Primary Care Provider] - (2) Ulcerative colitis Qualifiers: Ulcerative colitis location: other ulcerative colitis Digestive disease complication type: without complication Qualified Code(s): K51.80 - Other ulcerative colitis without complications (3) Diarrhea Qualifiers: Diarrhea type: unspecified type Qualified Code(s): R19.7 - Diarrhea, unspecified
[2018-09-15] MEDS: MetroNIDAZOLE 500 MG/100 ML 500 MG/100 ML BAG IVPB SCH ×4 (00:15→23:07)
[2018-09-15] MEDS: Ringers Solution, Lactated 1,000 ML IVC SCH ×3 (04:22→23:02)
[2018-09-15] MEDS: *HR* Heparin 5,000 UNIT/ML VIAL SQ SCH ×3 (04:23→21:35)
[2018-09-15 05:32] LABS: Basophils % 0.2 %; Eosinophils # 0.3 K/mcL (0.0-0.6); Eosinophils % 2.4 %; Hematocrit 26.9 % (37.5-50.1); Hemoglobin 8.5 g/dL (12.9-16.9); Immature Granulocytes % 0.6 % (0-4); Lymphocytes # 2.3 K/mcL (0.6-4.6); Lymphocytes % 17.3 %; Mean Corpuscular HGB Conc 31.6 g/dL (31.6-35.5); Mean Corpuscular Hemoglobin 26.8 pg (28.0-33.3); Mean Corpuscular Volume 84.9 fL (83.0-100.0); Mean Platelet Volume 10.2 fL (9.4-12.4); Monocytes # 1.7 K/mcL (0.0-1.3); Monocytes % 13.1 %; Neutrophils # 8.7 K/mcL (1.6-8.9); Platelet Count 327 K/mcL (140-400); Red Blood Count 3.17 M/mcL (4.19-5.50); Red Cell Distribution Width 15.5 % (11.5-14.5); Segmented Neutrophils % 66.4 %; White Blood Count 13.1 K/mcL (4.3-11.1)
[2018-09-15 05:50] LABS: BUN/Creatinine Ratio 10 (6-26); Blood Urea Nitrogen 13 mg/dL (8-23); Calcium 7.9 mg/dL (8.6-10.3); Carbon Dioxide 20 mEq/L (23-29); Chloride 116 mEq/L (98-107); Glucose 112 mg/dL (70-105); Magnesium 1.4 mg/dL (1.6-2.6); Osmolality,Calculated 299 (280-300); Potassium 3.3 mEq/L (3.5-5.1); Sodium 144 mEq/L (136-145); eGFR For African Americans > 60 (> 60); eGFR For Non-African Americans 53 (> 60)
[2018-09-15 06:11] LABS: Folate 2.9 ng/mL (3.0-16.0)
--- NOTE | 2018-09-15 07:51 | Electrocardiograph Report ---
[employer] Test Date: 2018-09-13 Pat Name: Chivo Obrien Department: [id number] Room: 3A13 Gender: M Manager Clinical Applications: : 1950 Requested By: Valarie Hurley Order Number: [id number] Reading MD: Royce Dill Measurements Intervals [place] Rate: 74 P: 66 UT: 170 QRS: 41 QRSD: 92 T: 3 QT: 384 QTc: 426 Interpretive Statements Sinus rhythm Abnormal R-wave progression, early transition Baseline wander in lead(s) V2 Electronically Signed On 09-15-2018 7:49:52 EDT by Royce Dill
[2018-09-15] MEDS: Finasteride 5 MG TABLET PO SCH (10:18)
[2018-09-15] MEDS: Famotidine 20 MG TABLET PO SCH (10:18)
[2018-09-15] MEDS: sulfaSALAzine 500 MG TABLET PO SCH ×2 (10:18→21:35)
[2018-09-15] MEDS: Isosorbide MONOnitrate (24 HR) 30 MG TAB.ER.24H PO SCH (10:18)
--- NOTE | 2018-09-15 16:18 | Internal Med Progress Note ---
Hospitalist Progress Note - Encounter Date of Encounter: 09/15/18 Time of Encounter: 09:00 - Subjective Interval History: No acute events. Patient denies abdominal pain and diarrhea. - Exam Vitals: Temp Pulse Resp BP Pulse Ox 97.7 F 81 13 130/71 96 09/15/18 15:26 09/15/18 15:26 09/15/18 15:26 09/15/18 15:26 09/15/18 15:26 Exam: General: Patient is alert, oriented 3. Head: Atraumatic, normal inspection, normocephalic. Eye: EOMI, PERRLA, no scleral icterus noted. ENT: Mucous membranes moist. No odontogenic infection noted. Neck: Normal inspection, no meningismus. Respiratory: No respiratory distress, rhonchi, or wheezes noted. Cardiovascular: Regular rate and regular rhythm, S1 and S2 audible. No murmurs, rubs, or gallops. GI: Soft, nondistended, normal bowel sounds. Extremities:No joint swelling, pedal edema, or tenderness noted. Neurological: Alert, oriented 3, no focal deficits. Psychiatric: normal affect, normal mood. Skin: Dry, intact, warm. Normal color. No rashes. - Assessment and Plan (1) Diarrhea Current Visit: Yes Status: Acute (2) Proctocolitis Current Visit: Yes Status: Acute (3) TACOS (acute kidney injury) Current Visit: Yes Status: Acute (4) Ulcerative colitis Current Visit: Yes Status: Acute (5) Hypokalemia Current Visit: Yes Status: Acute - Summary of Assessment and Plan Summary of Assessment and Plan: 68-year-old male with history of ulcerative colitis diagnosed 1 year ago, chronic pancreatitis, hypertension who came into the hospital with 3 month history of diarrhea, hematochezia and weight loss. CT scan of the abdomen revealed chronic changes consistent with ulcerative colitis and proctocolitis. His symptoms have curenty improved on IV antibiotics and budesonide. Proctocolitis: - Leukocytosis persists - Continue IV Flagyl and Cipro - Discussed with GI, continue budesonide as the patient was just started on it 4 days ago, no plans for IV steroids at this moment. Ulcerative colitis: - Continue budesonide and sulfasalazine. - ESR 56, CRP 22. Anemia: - Hb has further dropped to 8.5g/dl today - Could be due to GI blood loss from UC - WIll order FOBT Hypokalemia and Hypomagnesemia: - Likely from diarrhea. - Replacement given - Will continue to monitor TACOS: improving - Cr is 1.3 - Gradually improving - Will continue to hydrate and monitor CAD status post PCI: - Continue Lipitor, beta beto. Not on aspirin HTN: - Keep lisinopril on hold. Continue BB DVT prophylaxis: Heparin sc 1 - Time Spent with Patient Total time spent is greater than 50% in coordination of care (as documented) at patient's floor/unit and/or counseling patient: Internal Medicine: Result - Labs CBC & Chem 7: 09/15/18 04:33 09/15/18 04:33 Labs: Short CBC 09/15/18 Range/Units 04:33 WBC 13.1 H (4.3-11.1) K/mcL Hgb 8.5 L (12.9-16.9) g/dL Hct 26.9 L (37.5-50.1) % Plt Count 327 (140-400) K/mcL Neutrophils # 8.7 (1.6-8.9) K/mcL BMP 09/15/18 04:33 Sodium 144 Potassium 3.3 L Chloride 116 H Carbon Dioxide 20 L BUN 13 Creatinine 1.33 H Glucose 112 H Calcium 7.9 L Consult Discharge Plan - Plan Referrals: Oseas Painter DO [Primary Care Provider] - (1) Diarrhea Qualifiers: Diarrhea type: unspecified type Qualified Code(s): R19.7 - Diarrhea, unspecified (4) Ulcerative colitis Qualifiers: Ulcerative colitis location: other ulcerative colitis Digestive disease complication type: without complication Qualified Code(s): K51.80 - Other ulcerative colitis without complications
[2018-09-16 04:46] LABS: Hematocrit 28.2 % (37.5-50.1); Hemoglobin 8.7 g/dL (12.9-16.9)
[2018-09-16 05:09] LABS: BUN/Creatinine Ratio 9 (6-26); Blood Urea Nitrogen 12 mg/dL (8-23); Carbon Dioxide 18 mEq/L (23-29); Chloride 115 mEq/L (98-107); Glucose 133 mg/dL (70-105); Osmolality,Calculated 296 (280-300); Potassium 3.3 mEq/L (3.5-5.1); Sodium 142 mEq/L (136-145); eGFR For African Americans > 60 (> 60); eGFR For Non-African Americans 56 (> 60)
[2018-09-16] MEDS: Famotidine 20 MG TABLET PO SCH (08:14)
[2018-09-16] MEDS: sulfaSALAzine 500 MG TABLET PO SCH (08:14)
[2018-09-16] MEDS: Finasteride 5 MG TABLET PO SCH (08:14)
[2018-09-16] MEDS: Isosorbide MONOnitrate (24 HR) 30 MG TAB.ER.24H PO SCH (08:15)
[2018-09-16] MEDS: MetroNIDAZOLE 500 MG/100 ML 500 MG/100 ML BAG IVPB SCH (08:15)
[2018-09-16] MEDS: Ringers Solution, Lactated 1,000 ML IVC SCH ×2 (09:26→12:07)
[2018-09-16 09:50] LABS: Hematocrit 28.7 % (37.5-50.1); Hemoglobin 9.1 g/dL (12.9-16.9)
[2018-09-16 12:09] LABS: Hematocrit 27.8 % (37.5-50.1); Hemoglobin 8.8 g/dL (12.9-16.9)
[2018-09-16] MEDS: metroNIDAZOLE 500 MG TABLET PO SCH ×2 (12:14→15:11)
[2018-09-16 15:11] VITALS: BP 120/68
--- NOTE | 2018-09-16 15:32 | Discharge Summary ---
- NOTES TO OUTPATIENT PROVIDER Notes to Outpatient Provider: Patient presented with UC flare which improved. To complete 10 days of PO cipro flagyl and see GI specialist in 2 weeks (09/30/2018) Orders not resulted at time of discharge: Pending orders 09/16/18 16:00 H/H [Hemoglobin and Hematocrit] [HEME] Q4H 09/16/18 20:00 H/H [Hemoglobin and Hematocrit] [HEME] Q4H Date of Encounter: 09/16/18 Time of Encounter: 09:00 - Discharge Diagnosis (1) Proctocolitis Priority: Primary Status: Acute (2) Diarrhea Priority: Secondary Status: Resolved Qualifiers: Diarrhea type: unspecified type Qualified Code(s): R19.7 - Diarrhea, unspecified (3) TACOS (acute kidney injury) Priority: Secondary Status: Resolved (4) Ulcerative colitis Priority: Secondary Status: Chronic Qualifiers: Ulcerative colitis location: other ulcerative colitis Digestive disease complication type: without complication Qualified Code(s): K51.80 - Other ulcerative colitis without complications (5) Hypokalemia Priority: Secondary Status: Acute Hospital course: Mr. Obrien is a 68 year old male with a history of Ulcerative Colitis diagnosed a year ago, Pancreatitis and HTN who presented with a 3 month history of hematochezia, diarrhea and weight loss. CT of the abdomen revealed changes consistent with chronic UC and acute pancolitis. His symptoms resolved on IV antibiotic and budesonide. Discharge discussed with: patient - Time Spent with Patient Total time spent providing and/or coordinating discharge services: Time spent: Greater than 30 minutes (37) - Discharge Medications Prescriptions: New Ciprofloxacin [Cipro] 500 mg PO BID 10 Days #20 tablet metroNIDAZOLE [Flagyl] 500 mg PO TIDWM 10 Days #30 tablet Continued Lovastatin 40 mg PO DAILY Isosorbide DInitrate [Isosorbide Dinitrate] 30 mg PO DAILY Metoprolol [Lopressor] 50 mg PO BID Budesonide [Entocort EC] 9 mg PO DAILY Finasteride [Proscar] 5 mg PO DAILY Lisinopril 30 mg PO DAILY Ranitidine HCl [Acid Half Section Ironer] 150 mg PO BID Sulfasalazine [Azulfidine] 2,000 mg PO BID Home Medications: Isosorbide DInitrate [Isosorbide Dinitrate] 30 mg PO DAILY 09/23/16 [History] Lovastatin 40 mg PO DAILY 09/23/16 [History] Metoprolol [Lopressor] 50 mg PO BID 09/23/16 [History] Budesonide [Entocort EC] 9 mg PO DAILY 09/13/18 [History] Finasteride [Proscar] 5 mg PO DAILY 09/13/18 [History] Lisinopril 30 mg PO DAILY 09/13/18 [History] Ranitidine HCl [Acid Half Section Ironer] 150 mg PO BID 09/13/18 [History] Sulfasalazine [Azulfidine] 2,000 mg PO BID 09/13/18 [History] Ciprofloxacin [Cipro] 500 mg PO BID 10 Days #20 tablet 09/16/18 [Rx] metroNIDAZOLE [Flagyl] 500 mg PO TIDWM 10 Days #30 tablet 09/16/18 [Rx] Allergies/Adverse Reactions: Allergy/AdvReac Type Severity Reaction Status Date / Time No Known Allergies Allergy Verified 09/23/16 09:16 Date of admission: 09/13/18 15:07 Primary care physician: Oseas Painter DO Consults: 09/13/18 12:45 Consult to Gastroenterology [CONS] Stat Consulting Provider: [facility] [place] Reason for Consult: Diarrhea, ulcerative colitis, Call Completed: Yes - Constitutional Vitals: Temp Pulse Resp BP Pulse Ox 36.9 C 86 15 120/68 98 09/16/18 15:08 09/16/18 15:08 09/16/18 15:08 09/16/18 15:08 09/16/18 15:08 Exam: General: Patient is alert, oriented 3. Head: Atraumatic, normal inspection, normocephalic. Eye: EOMI, PERRLA, no scleral icterus noted. ENT: Mucous membranes moist. No odontogenic infection noted. Neck: Normal inspection, no meningismus. Respiratory: No respiratory distress, rhonchi, or wheezes noted. Cardiovascular: Regular rate and regular rhythm, S1 and S2 audible. No murmurs, rubs, or gallops. GI: Soft, nondistended, normal bowel sounds. Extremities:No joint swelling, pedal edema, or tenderness noted. Neurological: Alert, oriented 3, no focal deficits. Psychiatric: normal affect, normal mood. Skin: Dry, intact, warm. Normal color. No rashes. - Patient Status Disposition: Home, Self-Care Condition: Good Functional capacity at discharge: independent ambulation Overall status at discharge: patient is progressing back to baseline - Discharge Instructions Instructions: Ulcerative Colitis (DC) Follow Up With: Oseas Painter DO [Primary Care Provider] - - Diet and Activity Activity: increase activity as tolerated Diet: advance to your usual diet
[2018-09-16 16:30] LABS: Hematocrit 28.2 % (37.5-50.1); Hemoglobin 8.8 g/dL (12.9-16.9)
== END 2018-09-16 17:47 | disposition home or self-care (01) ==
LOC: EMEROOARM 09:09 → 3ANU 09:09 → SUATTDRO 15:07 → 3ANU 15:56
PROVIDERS: ADMIT Internal Medicine; ATTEND Internal Medicine